=== PATIENT | female | born 1990 | race Caucasian/White ===

== ENCOUNTER 2019-12-23 12:49 | Outpatient (CLI) | payer OTHER, MEDICAID, SELFPAY ==
--- NOTE | 2019-12-23 13:17 | PM.OBTRLD ---
Visit Information Visit Information Date of evaluation: 12/23/19 Primary OB Provider: Trudy Donovan On-call OB Provider: Breann Dunne Reason for Evaluation: Yes other Comments/Additional reasons for admission: emesis in likely withdrawal from methadone Vital Signs Vital Signs: BP 1238/80, P 91 T 98.4 PFSH Social History Smoking Status: Current every day smoker Evaluation Evaluation Baseline heart rate: 150 Variability: Average (6-10) monitor accelerations: Present monitor decelerations: Absent Contraction Frequency (minutes): 0 Category of Tracing: I Diagnosis, Plan/Disposition Final Diagnosis (1) 30 weeks gestation of : Status: Acute (2) Methadone maintenance treatment complicating , antepartum: Status: Acute Plan/Disposition Plan: Patient returned to ER for fluids
== END 2019-12-23 13:10 | disposition home or self-care (01) ==
LOC: LABOR 12:56 → OB 12-25 07:40
PROVIDERS: Referring Provider Specialist; Visit Provider Specialist
DX: O21.9 Vomiting of pregnancy, unspecified (principal); F19.239 Other psychoactive substance dependence with withdrawal, unspecified; Z3A.30 30 weeks gestation of pregnancy
CPT/HCPCS: 59025; G0378; G0379

== ENCOUNTER 2019-12-23 13:17 | Emergency (ER) | payer OTHER, MEDICAID, SELFPAY ==
[2019-12-23 13:38] VITALS: BP 133/75; PULSE 63; RESP 16; TEMP 36.7; O2SAT 96; BMI 32.1
[2019-12-23] MEDS: ONDANSETRON 4 MG ODT SL (13:45)
[2019-12-23 13:50] LABS: Appearance Urine UA SL CLOUDY; Bilirubin Urine UA NEGATIVE (NEGATIVE); Color Urine UA YELLOW; Glucose Urine UA NEGATIVE (Negative); Ketones Urine UA NEGATIVE (NEGATIVE); Leukocyte Esterase Urine UA NEGATIVE (NEGATIVE); Nitrite Urine UA NEGATIVE (Negative); Occult Blood Urine UA NEGATIVE (Negative); Protein Urine UA NEGATIVE (Negative); RBC Urine None Seen (0-5/HPF); Specific Gravity Urine UA 1.015 (1.000-1.035); Urobilinogen Urine UA 0.2 E.U./dL (0.2); WBC Urine None Seen (0-5/HPF)
[2019-12-23 13:53] LABS: pH Urine UA 7.5 (4.5-8.0)
[2019-12-23 14:00] LABS: Amorphous Sediment Urine 2+; Bacteria Urine Moderate (10-30); Squamous Epithelial Cell Urine 5-10 /HPF (0-5/HPF)
[2019-12-23 14:01] LABS: Culture Indicated Urine Cult Not Indicated
[2019-12-23 14:35] VITALS: BP 111/64; PULSE 78; RESP 16; O2SAT 100
--- NOTE | 2019-12-23 15:32 | PC.NURSE ---
reports three days of nausea with vomiting. Evaluated in center prior to ED today. center gave odt son. Patient has not experienced vomiting or dry heaving while in ED. Pateint agrees to PO challenge and lab draw. Provider notified and verbal orders given.
--- NOTE | 2019-12-23 15:34 | ED_ITS ---
HPI - Nausea/Vomiting/Diarrhea General Chief complaint: Nausea/Vomiting/Diarrhea Stated complaint: Dehydrated & vomiting x2 days Time Seen by Provider: 12/23/19 14:36 Source: patient and family History of Present Illness HPI Narrative: Patient sent here from L&D for IV hydration. Patient has had nausea and vomiting past 3 days. Evaluated by L and D and cleared by OB and sent here. Patient given Zofran ODT. Patient now feels like she can not drink. She is currently tolerating water by mouth. Will hold at this time for IV therapy. No recent illness. No cough cold congestion. No urinary complaints. [address] [address] Labor and Delivery Triage Note Patient: Hansa Hunt NMR#: [id number] : 1990Acct:[id number] Age/Sex: 29 / F Date of Service: 12/23/19 Provider: Breann Dunne MD Visit Information Visit Information Date of evaluation: 12/23/19 Primary OB Provider: Trudy Donovan On-call OB Provider: Breann Dunne Reason for Evaluation: Yes other Comments/Additional reasons for admission: emesis in likely withdrawal from methadone Vital Signs Vital Signs: BP 1238/80, P 91 T 98.4 PFSH Social History Smoking Status: Current every day smoker Evaluation Evaluation Baseline heart rate: 150 Variability: Average (6-10) monitor accelerations: Present monitor decelerations: Absent Contraction Frequency (minutes): 0 Category of Tracing: I Diagnosis, Plan/Disposition Final Diagnosis (1) 30 weeks gestation of : Status: Acute (2) Methadone maintenance treatment complicating , antepartum: Status: Acute Plan/Disposition Plan: Patient returned to ER for fluids Signed By:<Electronically signed by Breann Dunne MD>12/23/19 1416 Related Data Previous Rx's Medication Instructions Recorded ondansetron 4 mg PO Q8H PRN #7 tab 12/23/19 Review of Systems Review of Systems Narrative: GENERAL: Denies chills, fatigue, malaise, fever, sweats. HEENT: Denies sinus pain, ear pain, sore throat, difficulty swallowing, dizziness. RESPIRATORY: Denies dyspnea, cough, wheezing, hemoptysis, sputum. CARDIOVASCULAR: Denies chest pain, palpitations, orthopnea, edema, GASTROINTESTINAL: Denies any abdominal pain. Has nausea and vomiting. No diarrhea : Denies dysuria, frequency, incontinence, hematuria, urinary retention. MUSCULOSKELETAL: denies weakness, joint pain, or bony pain SKIN: Denies rash, skin lesions, or other NEUROLOGIC: Denies weakness, headache, numbness, change in speech, confusion, seizures, incoordination. PSYCHIATRIC: No concerning psychosocial issues. ROS Unobtainable: All systems reviewed & are unremarkable except as noted in HPI and below Patient History Social History Smoking Status: Current every day smoker Smoking Status: Current every day smoker tobacco type: cigarettes alcohol intake frequency: holidays/special occasions only Substance Use Type: does not use Exam Narrative Exam Narrative: GENERAL: patient appears stated age. Well-nourished, well- developed patient, in no distress, not toxic HEAD: Atraumatic. Normocephalic. EYES: Pupils equal round and reactive. NECK: Trachea midline. Non tender CARDIOVASCULAR: Regular rate and rhythm without murmurs, gallops, or rubs. RESPIRATORY: Clear to auscultation. Breath sounds equal bilaterally. No wheezes, rales, or rhonchi. GASTROINTESTINAL: Abdomen soft, non-tender BACK: Nontender without deformity or crepitance. No flank tenderness. NEURO: AOx3. SKIN: No rash or erythema of visible areas Initial Vital Signs Initial Vital Signs: Vital Signs Temperature 98.1 F 12/23/19 13:38 Pulse Rate 63 12/23/19 13:38 Respiratory Rate 16 12/23/19 13:38 Blood Pressure 133/75 12/23/19 13:38 Pulse Oximetry 96 12/23/19 13:38 Course Course Course Narrative: At this time no IV therapy. Patient is tolerating water by mouth. Likely hyperemesis resolving Leukocytosis noted. However no fever chills no cough cold congestion recent illness urinary complaints. Not toxic. Can be elevated during Orders Ordered: ED Orders 12/23/19 13:42 Urinalysis and Microscopic Stat 12/23/19 16:17 CMP [Comprehensive Metabolic Panel] Stat Complete Blood Count AUTO DIFF Stat Discontinued Medications Ondansetron HCl (Zofran Odt) 4 mg SL NOW ONE Stop: 12/23/19 13:42 Last Admin: 12/23/19 13:45 Dose: 4 mg Documented by: AIRAM Reevaluation(s) Reevaluation #1: Patient drink water without any difficulty. No nausea or vomiting. They desire discharge home Time: 16:58 Vital Signs Vital signs: Vital Signs - 8 hr 12/23/19 13:38 12/23/19 14:35 12/23/19 16:37 Temperature 98.1 F Pulse Rate 63 78 85 Respiratory Rate 16 16 16 Blood Pressure 133/75 Blood Pressure [Left Arm] 111/64 131/72 Pulse Oximetry 96 100 99 MDM - Nausea/Vomiting/Diarrhea Lab Data Attestation: I reviewed the patient's lab results. Result diagrams: 12/23/19 16:17 12/23/19 16:17 Labs: Lab Results 12/23/19 12/23/19 12/23/19 Range/Units 13:42 16:17 16:17 WBC 19.9 H (4.5-11.0) X10^3/uL RBC 4.50 (4.0-5.2) X10^6/uL Hgb 14.3 (12.0-16.0) g/dL Hct 41.4 (36-46) % MCV 92.0 (80-100) fL MCH 31.8 (26-34) PG MCHC 34.5 (30-36) % RDW 14.1 (11.6-14.8) % Plt Count 171 (150-400) X10^3/uL Neut % (Auto) 87.7 H (50-75) % Lymph % (Auto) 7.8 L (25-40) % Bartholomew % (Auto) 4.0 (3-14) % Eos % (Auto) 0.3 L (2-4) % Baso % (Auto) 0.2 (0-2) % Neut # (Auto) 59140 H (0221-6876) /uL Lymph # (Auto) 1600 (7400-4947) /uL Bartholomew # (Auto) 800 (0-900) /uL Eos # (Auto) 100 (0-450) /uL Baso # (Auto) 0 (0-100) /uL Sodium 136 L (137-145) mmol/L Potassium 4.3 (3.4-5.1) mmol/L Chloride 104 (98-107) mmol/L Carbon Dioxide 25 (22-32) mmol/L BUN 11 (7-17) mg/dL Creatinine 0.50 L (0.52-1.04) mg/dL Estimated GFR > 60.0 (>60) mL/min BUN/Creatinine Ratio 22.0 (6-22) Glucose 75 (70-100) mg/dL Calcium 9.3 (8.4-10.2) mg/dL Total Bilirubin 0.4 (0.2-1.3) mg/dL AST 34 (14-36) IU/L ALT 14 (<35) IU/L Alkaline Phosphatase 86 (38-126) U/L Total Protein 7.1 (6.3-8.2) g/dL Albumin 3.8 (3.5-5.0) g/dL Globulin 3.3 (1.7-4.1) g/dL Albumin/Globulin Ratio 1.2 (1.0-2.8) Urine Color Yellow Urine Appearance Sl cloudy Urine pH 7.5 (4.5-8.0) Ur Specific [place] 1.015 (1.000-1.035) Urine Protein Negative (Negative) Urine Glucose (UA) Negative (Negative) g/dL Urine Ketones Negative (NEGATIVE) Urine Occult Blood Negative (Negative) Urine Nitrate Negative (Negative) Urine Bilirubin Negative (NEGATIVE) Urine Urobilinogen 0.2 (0.2) E.U./dL Ur Leukocyte Esterase Negative (NEGATIVE) Urine RBC None seen (0-5/HPF) Urine WBC None seen (0-5/HPF) Ur Squamous Epith Cells 5-10 /hpf H (0-5/HPF) Amorphous Sediment 2+ Urine Bacteria Moderate (10-30) H (None) Ur Culture Indicated? 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 Continue home medications. Return if worse. Keep well hydrated Prescriptions: New ondansetron 4 mg tablet,disintegrating 4 mg PO Q8H PRN (Reason: nausea and vomiting) Qty: 7 RF: 0
[2019-12-23 16:28] LABS: Add Manual Diff / Slide Review NO; Basophils Absolute Auto 0 /uL (0-100); Basophils Percent Auto 0.2 % (0-2); Eosinophils Absolute Auto 100 /uL (0-450); Eosinophils Percent Auto 0.3 % (2-4); Hematocrit 41.4 % (36-46); Hemoglobin 14.3 g/dL (12.0-16.0); Lymphocytes Absolute Auto 1600 /uL (1100-4500); Lymphocytes Percent Auto 7.8 % (25-40); Mean Corpuscular HGB Conc 34.5 % (30-36); Mean Corpuscular Hemoglobin 31.8 PG (26-34); Monocytes Absolute Auto 800 /uL (0-900); Neutrophils Absolute Auto 17500 /uL (1500-7000); Neutrophils Percent Auto 87.7 % (50-75); Platelet Count 171 X10^3/uL (150-400); Red Cell Distribution Width 14.1 % (11.6-14.8); White Blood Cell Count 19.9 X10^3/uL (4.5-11.0)
[2019-12-23 16:35] LABS: Alanine Aminotransferase 14 IU/L (<35); Albumin 3.8 g/dL (3.5-5.0); Albumin Globulin Ratio 1.2 (1.0-2.8); Alkaline Phosphatase 86 U/L (38-126); Aspartate Aminotransferase 34 IU/L (14-36); Bilirubin Total 0.4 mg/dL (0.2-1.3); Blood Urea Nitrogen 11 mg/dL (7-17); Calcium 9.3 mg/dL (8.4-10.2); Carbon Dioxide 25 mmol/L (22-32); Chloride 104 mmol/L (98-107); Estimated Glomerular Filt Rate > 60.0 mL/min (>60); Globulin 3.3 g/dL (1.7-4.1); Glucose 75 mg/dL (70-100); HEMOLYSIS < 15 (0-50); Potassium 4.3 mmol/L (3.4-5.1); Sodium 136 mmol/L (137-145); Total Protein 7.1 g/dL (6.3-8.2)
[2019-12-23 16:37] VITALS: BP 131/72; PULSE 85; RESP 16; O2SAT 99
--- NOTE | 2019-12-23 16:38 | PC.NURSE ---
AUXILIARY ENGINEER Note: Patient requesting crackers. Reports nausea much improved. Given 3 packets of crackers and cup of water. Notified to report any nausea following eating.
== END 2019-12-23 17:14 | disposition home or self-care (01) ==
PROVIDERS: Emergency Provider Emergency Medicine
DX: O21.0 Mild hyperemesis gravidarum (principal); Z3A.30 30 weeks gestation of pregnancy; O99.320 Drug use complicating pregnancy, unspecified trimester; F11.20 Opioid dependence, uncomplicated
CPT/HCPCS: 36415; 59025; 80053; 81001; 85025; 99283; G0378; G0379

== ENCOUNTER 2022-10-22 18:34 | Emergency (ER) | payer OTHER, MEDICAID, SELFPAY ==
[2022-10-22 18:39] VITALS: BP 140/92; PULSE 66; RESP 18; TEMP 36.6; O2SAT 100; BMI 37.5
--- NOTE | 2022-10-22 19:00 | DI.CT.S_ITS ---
PROCEDURE: CT CHEST ABD PEL W CON INDICATIONS: Trauma TECHNIQUE: After the administration of intravenous contrast, 5 mm thick sections acquired from the lung apices to the symphysis. 2.5 mm thick coronal and sagittal reformats were acquired. Additional 7 mm thick coronal maximum intensity projection (MIP) reformats acquired through the lungs. Optional 10-minute delayed imaging may be performed from the kidneys to the bladder. For radiation dose reduction, the following was used: automated exposure control, adjustment of mA and/or kV according to patient size. COMPARISON: [facility], CR, KUB, 04/23/2011, 17:27. [facility], CT, CT CERVICAL SPINE WO CON, 10/22/2022, 19:05. [facility], CT, CT HEAD/BRAIN WO CON, 10/22/2022, 19:05. FINDINGS: Image quality: This study is limited by body habitus. CHEST: Lungs: No pulmonary contusions or lacerations. No acute airspace opacities. No pneumothorax or hemothorax. Central and peripheral airways appear patent and normal in caliber. Mediastinum: No mediastinal hematomas. Heart size is normal. No pericardial effusion. Thoracic aorta and pulmonary arteries demonstrate normal size and enhancement. No mediastinal or hilar adenopathy. Esophagus is normal in caliber. No hiatal hernia. Chest wall: No rib fractures. No subcutaneous emphysema. No axillary or supraclavicular adenopathy. Thyroid gland demonstrates no significant abnormality. ABDOMEN: Solid organs: Liver is normal in size and enhancement, without lacerations. Gallbladder demonstrates gallstones within its lumen. Biliary system is non-dilated. Pancreas enhances normally, without transection. Spleen is normal in size and enhancement, without lacerations. No adrenal hematomas. Both kidneys enhance normally, without hydronephrosis or lacerations. Peritoneum and bowel: No free fluid or air. Unenhanced bowel loops demonstrate normal wall thickness and caliber. Appendectomy change can be seen. There is a moderate amount of stool seen within the colon. Nodes and vessels: No retroperitoneal or mesenteric adenopathy. Aorta and inferior vena cava are normal in size and enhancement. Miscellaneous: No ventral hernias. PELVIS: Genitourinary: Bladder wall thickness is normal. The uterus appears normal for age. No adnexal masses are seen. Miscellaneous: No inguinal hernias or adenopathy. Bones: Pelvic ring and hip joints appear intact. No vertebral compression fractures. IMPRESSION: No significant posttraumatic abnormality can be seen. Negative for rib fracture. No pneumothorax is seen. No solid organ injury can be seen. No free air or significant intraperitoneal fluid can be seen. There is a moderate amount of stool seen within the colon. Please correlate with an underlying history of constipation. Additional findings: Gallstones Appendectomy Note: Case discussed by telephone with Dr. Phipps at 7:58 p.m. [place] time on October 22, 2022. Dictated by: Pieter Hill M.D. on 10/22/2022 at 19:52 Approved by: Pieter Hill M.D. on 10/22/2022 at 19:59
--- NOTE | 2022-10-22 19:00 | DI.CT.S_ITS ---
PROCEDURE: CT CERVICAL SPINE WO CON INDICATIONS: Trauma TECHNIQUE: Noncontrast 3 mm thick sections acquired from the skull base to the T4 level. Sagittal and coronal reformats were then constructed. For radiation dose reduction, the following was used: automated exposure control, adjustment of mA and/or kV according to patient size. COMPARISON: [facility], CT, CT CHEST ABD PEL W CON, 10/22/2022, 19:05. [facility], CT, CT HEAD/BRAIN WO CON, 10/22/2022, 19:05. FINDINGS: Image quality: This examination is somewhat limited by quantum mottle artifact. Bones: No fractures or dislocations. Visualized superior ribs are intact. Soft tissues: Prevertebral soft tissues are normal in thickness. No paravertebral hematomas. No apical pneumothoraces. IMPRESSION: Negative for fracture. Note: Case discussed by telephone with Dr. Phipps at 7:58 p.m. [place] time on October 22, 2022. Dictated by: Pieter Hill M.D. on 10/22/2022 at 19:59 Approved by: Pieter Hill M.D. on 10/22/2022 at 20:00
--- NOTE | 2022-10-22 19:00 | DI.CT.S_ITS ---
PROCEDURE: CT HEAD/BRAIN WO CON INDICATIONS: Trauma TECHNIQUE: Noncontrast 4.5 mm thick angled axial sections acquired from the foramen magnum to the vertex, with coronal and sagittal reformats. For radiation dose reduction, the following was used: automated exposure control, adjustment of mA and/or kV according to patient size. COMPARISON: [facility], MR, BRAIN W/O CONTRAST, 08/22/2013, 8:15. [facility], CT, CT CERVICAL SPINE WO CON, 10/22/2022, 19:05. [facility], CT, CT CHEST ABD PEL W CON, 10/22/2022, 19:05. FINDINGS: Image quality: Excellent. CSF spaces: Basal cisterns are patent. No extra-axial fluid collections. Ventricles are normal in size and shape. Brain: No midline shift. No intracranial masses or hemorrhage. Dominguez-white matter interface is normal. Skull and face: Calvarium and visualized facial bones are intact, without suspicious lesions. Sinuses: Visualized sinuses and mastoids are clear. IMPRESSION: No acute intracranial hemorrhage is seen. No acute intracranial process is seen. Note: Case discussed by telephone with Dr. Phipps at 7:58 p.m. [place] time on October 22, 2022. Dictated by: Pieter Hill M.D. on 10/22/2022 at 20:00 Approved by: Pieter Hill M.D. on 10/22/2022 at 20:01
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
[2022-10-22 19:40] VITALS: BP 128/68; PULSE 82; RESP 16; TEMP 36.6; O2SAT 99
[2022-10-22] MEDS: TET,DIPH,PERTUSS(ACELL),VAC/PF 0.5 ML SYRINGE IM (19:47)
[2022-10-22 20:42] LABS: UR Morphine/Opiate cutoff 300 Negative (Negative); Ur Creatinine Normal (Normal); Ur Specific Gravity Normal (Normal); Urine Amphetamines Negative (Negative); Urine Barbiturates Negative (Negative); Urine Benzodiazepines Negative (Negative); Urine Cocaine Negative (Negative); Urine MDMA Negative (Negative); Urine Methadone Positive (Negative); Urine Methamphetamines Negative (Negative); Urine Oxycodone Negative (Negative); Urine Phencyclidine Negative (Negative); Urine Tetrahydrocannabinol Positive (Negative); Urine Tricyclic Antidepressant Negative (Negative); Urine pH Normal (Normal)
[2022-10-22 20:42] LABS: Add Manual Diff / Slide Review NO; Basophils Absolute Auto 100 /uL (0-100); Eosinophils Absolute Auto 300 /uL (0-450); Eosinophils Percent Auto 2.7 % (2-4); Hematocrit 40.5 % (36-46); Hemoglobin 13.6 g/dL (12.0-16.0); Lymphocytes Absolute Auto 3200 /uL (1100-4500); Lymphocytes Percent Auto 28.5 % (25-40); Mean Corpuscular HGB Conc 33.7 % (30-36); Mean Corpuscular Hemoglobin 28.8 PG (26-34); Mean Corpuscular Volume 85.6 fL (80-100); Monocytes Absolute Auto 1000 /uL (0-900); Monocytes Percent Auto 8.6 % (3-14); Neutrophils Absolute Auto 6600 /uL (1500-7000); Neutrophils Percent Auto 59.2 % (50-75); Platelet Count 216 X10^3/uL (150-400); Red Blood Cell Count 4.74 X10^6/uL (4.0-5.2); White Blood Cell Count 11.1 X10^3/uL (4.5-11.0)
[2022-10-22 20:50] LABS: Prothrombin Time 11.2 SECONDS (10.1-12.7)
[2022-10-22 20:53] LABS: PTT Partial Thromboplastin Tim 30 SECONDS (26-36)
[2022-10-22 20:55] LABS: Alanine Aminotransferase 22 IU/L (<35); Albumin 3.9 g/dL (3.5-5.0); Albumin Globulin Ratio 1.3 (1.0-2.8); Alkaline Phosphatase 77 U/L (38-126); Aspartate Aminotransferase 30 IU/L (14-36); BUN Creatinine Ratio 24.6 (6-22); Bilirubin Total 0.2 mg/dL (0.2-1.3); Blood Urea Nitrogen 16 mg/dL (7-17); Calcium 8.7 mg/dL (8.4-10.2); Carbon Dioxide 27 mmol/L (22-32); Chloride 104 mmol/L (98-107); Estimated Glomerular Filt Rate > 60 mL/min (>60); Ethanol (ETOH) < 10 mg/dL; Globulin 3.1 g/dL (1.7-4.1); Glucose 93 mg/dL (70-100); HEMOLYSIS 39 (0-50); Lactate (Lactic Acid) 0.8 mmol/L (0.7-2.1); Lipase 42 U/L (23-300); Potassium 4.5 mmol/L (3.4-5.1); Sodium 135 mmol/L (137-145)
[2022-10-22] MEDS: CYCLOBENZAPRINE 10 MG PREPACK 1 BOTTLE MISC (21:28)
[2022-10-22 21:40] VITALS: BP 128/70; PULSE 74; RESP 16; TEMP 36.5; O2SAT 98
== END 2022-10-22 21:40 | disposition home or self-care (01) ==
PROVIDERS: Emergency Provider Emergency Medicine
DX: S20.211A Contusion of right front wall of thorax, initial encounter (principal); M62.838 Other muscle spasm; M54.2 Cervicalgia; V89.2XXA Person injured in unspecified motor-vehicle accident, traffic, initial encounter; Z23 Encounter for immunization
CPT/HCPCS: 36415; 70450; 71260; 72125; 74177; 80053; 80305; 80320; 81003; 81025; 83605; 83690; 85025; 85610; 85730; 86850; 86900; 86901; 90471; 93005; 99284; 90715; Q9967

== ENCOUNTER → 2023-08-10 10:08 | Outpatient (CLI) | payer OTHER, MEDICAID, SELFPAY ==
[2023-08-10 11:22] LABS: Add Manual Diff / Slide Review NO; Basophils Absolute Auto 100 /uL (0-100); Basophils Percent Auto 0.9 % (0-2); Eosinophils Absolute Auto 100 /uL (0-450); Eosinophils Percent Auto 1.4 % (2-4); Hematocrit 43.7 % (36-46); Lymphocytes Absolute Auto 2300 /uL (1100-4500); Mean Corpuscular HGB Conc 34.3 % (30-36); Mean Corpuscular Hemoglobin 29.8 PG (26-34); Mean Corpuscular Volume 86.8 fL (80-100); Monocytes Absolute Auto 800 /uL (0-900); Monocytes Percent Auto 7.7 % (3-14); Neutrophils Absolute Auto 7000 /uL (1500-7000); Platelet Count 241 X10^3/uL (150-400); Red Blood Cell Count 5.03 X10^6/uL (4.0-5.2); Red Cell Distribution Width 14.4 % (11.6-14.8); White Blood Cell Count 10.3 X10^3/uL (4.5-11.0)
[2023-08-10 11:26] LABS: Hemoglobin A1C% w Est Avg Glu 5.3 % (4.0-6.0)
[2023-08-10 11:43] LABS: Alanine Aminotransferase 17 IU/L (<35); Albumin 4.4 g/dL (3.5-5.0); Albumin Globulin Ratio 1.4 (1.0-2.8); Alkaline Phosphatase 68 U/L (38-126); Aspartate Aminotransferase 24 IU/L (14-36); BUN Creatinine Ratio 21.6 (6-22); Bilirubin Total 0.6 mg/dL (0.2-1.3); Blood Urea Nitrogen 16 mg/dL (7-17); Calcium 9.6 mg/dL (8.4-10.2); Carbon Dioxide 24 mmol/L (22-32); Chloride 107 mmol/L (98-107); Estimated Glomerular Filt Rate > 60 mL/min (>60); Globulin 3.2 g/dL (1.7-4.1); Glucose 96 mg/dL (70-100); HEMOLYSIS < 15 (0-50); Potassium 4.2 mmol/L (3.4-5.1); Sodium 140 mmol/L (137-145); Total Protein 7.6 g/dL (6.3-8.2)
[2023-08-10 12:12] LABS: TSH w/ Reflex to FT4 0.49 uIU/mL (0.47-4.68)
== END ==
LOC: LAB 10:08
PROVIDERS: Referring Provider Physician Assistant; Visit Provider Physician Assistant
DX: Z13.9 Encounter for screening, unspecified (principal)
CPT/HCPCS: 36415; 80053; 83036; 84443; 85025